=== PATIENT | female | born 1970 | race Caucasian/White ===

== ENCOUNTER 2017-08-01 22:58 | Emergency (ER) | payer MEDICARE, MEDICAID ==
[2017-08-01] MEDS: KETOROLAC 30 MG INJ IM (23:48)
== END 2017-08-02 00:41 | disposition home or self-care (01) ==
LOC: E/R 08-02 00:41
DX: I87.2 Venous insufficiency (chronic) (peripheral) (principal); E66.01 Morbid (severe) obesity due to excess calories; G89.4 Chronic pain syndrome; M79.2 Neuralgia and neuritis, unspecified; I10 Essential (primary) hypertension; E11.9 Type 2 diabetes mellitus without complications; Z79.84 Long term (current) use of oral hypoglycemic drugs
CPT/HCPCS: 71045; 93005; 96372; 99284-25

== ENCOUNTER 2018-02-21 10:26 | Emergency (ER) | payer MEDICARE, MEDICAID ==
[2018-02-21] MEDS: VANCOMYCIN 1 GM (PMX) 250 ML IVPB (11:17)
[2018-02-21 11:26] LABS: ADD MAN DIFF? NO
[2018-02-21 11:29] LABS: BASOPHILS % 0.3 % (0.0-2.0); EOSINOPHILS # 0.2 10^3/ul (0.0-0.5); EOSINOPHILS % 1.5 % (0.0-7.0); HEMATOCRIT 40.9 % (37.0-47.0); HEMOGLOBIN 12.3 g/dl (12.0-16.0); LYMPHOCYTES # 1.9 10^3/ul (0.8-2.9); LYMPHOCYTES % 17.6 % (15.0-51.0); MEAN CORPUSCULAR HEMOGLOBIN 24.2 pg (29.0-33.0); MEAN CORPUSCULAR HGB CONC 30.1 g/dl (32.0-37.0); MEAN CORPUSCULAR VOLUME 80.5 fl (82.0-101.0); MONOCYTE # 0.6 10^3/ul (0.3-0.9); MONOCYTES % 5.6 % (0.0-11.0); NEUTROPHIL # 7.9 10^3/ul (1.6-7.5); NEUTROPHILS % 74.4 % (39.0-77.0); PLATELET COUNT 277 10^3/UL (140-415); RED BLOOD COUNT 5.08 10^6/ul (4.20-5.40); RED CELL DISTRIBUTION WIDTH 17.9 % (11.5-14.5)
[2018-02-21 11:29] LABS: WHITE BLOOD COUNT 10.6 10^3/ul (4.8-10.8)
[2018-02-21] MEDS: KETOROLAC 30 MG INJ IV (11:48)
[2018-02-21 11:53] LABS: ALANINE AMINOTRANSFERASE 22 IU/L (13-69); ALBUMIN 3.9 g/dl (3.3-4.9); ALBUMIN/GLOBULIN RATIO 0.88; ALKALINE PHOSPHATASE 91 IU/L (42-121); ANION GAP 12 (8-16); ASPARTATE AMINO TRANSFERASE 18 IU/L (15-46); BILIRUBIN,INDIRECT 0.5 mg/dl (0-1.1); BILIRUBIN,TOTAL 0.5 mg/dl (0.2-1.3); BLOOD UREA NITROGEN 14 mg/dl (7-20); CARBON DIOXIDE 30 mmol/L (21-31); CHLORIDE 103 mmol/L (97-110); CREATININE 0.82 mg/dl (0.44-1.00); GLUCOSE 111 mg/dl (70-220); POTASSIUM 4.1 mmol/L (3.5-5.1); SODIUM 141 mmol/L (135-144); TOTAL PROTEIN 8.3 g/dl (6.1-8.1)
== END 2018-02-21 13:24 | disposition home or self-care (01) ==
LOC: FTE 10:26
DX: L03.311 Cellulitis of abdominal wall (principal); I10 Essential (primary) hypertension; E66.01 Morbid (severe) obesity due to excess calories; Z68.43 Body mass index [BMI] 50.0-59.9, adult; Z79.84 Long term (current) use of oral hypoglycemic drugs
CPT/HCPCS: 36415; 80053; 85025; 96365; 96366; 96375; 99284-25

== ENCOUNTER 2018-03-05 13:16 | Observation (INO) | payer MEDICARE, MEDICAID ==
[2018-03-05] MEDS: ASPIRIN 81 MG TAB PO (14:15)
[2018-03-05] MEDS: NITROGLYCERIN 2% 1 GM OINT PKT TD (14:15)
[2018-03-05] MEDS ORDERED: NITROGLYCERIN (SL) 0.4 MG TAB SL ×2 (14:30→16:00)
[2018-03-05 14:52] LABS: ADD MAN DIFF? NO
[2018-03-05 14:57] LABS: WHITE BLOOD COUNT 9.8 10^3/ul (4.8-10.8)
[2018-03-05 14:57] LABS: BASOPHILS % 0.3 % (0.0-2.0); EOSINOPHILS # 0.2 10^3/ul (0.0-0.5); EOSINOPHILS % 1.9 % (0.0-7.0); HEMATOCRIT 38.5 % (37.0-47.0); HEMOGLOBIN 11.7 g/dl (12.0-16.0); LYMPHOCYTES # 2.1 10^3/ul (0.8-2.9); LYMPHOCYTES % 21.1 % (15.0-51.0); MEAN CORPUSCULAR HEMOGLOBIN 24.5 pg (29.0-33.0); MEAN CORPUSCULAR HGB CONC 30.4 g/dl (32.0-37.0); MEAN CORPUSCULAR VOLUME 80.7 fl (82.0-101.0); MEAN PLATELET VOLUME 9.8 fl (7.4-10.4); MONOCYTE # 0.6 10^3/ul (0.3-0.9); MONOCYTES % 6.3 % (0.0-11.0); NEUTROPHIL # 6.8 10^3/ul (1.6-7.5); NEUTROPHILS % 69.9 % (39.0-77.0); PLATELET COUNT 322 10^3/UL (140-415); RED BLOOD COUNT 4.77 10^6/ul (4.20-5.40); RED CELL DISTRIBUTION WIDTH 17.1 % (11.5-14.5)
[2018-03-05 15:17] LABS: INR 0.96; PROTIME 12.9 Sec (11.9-14.9)
[2018-03-05 15:18] LABS: ANION GAP 10 (8-16); BLOOD UREA NITROGEN 13 mg/dl (7-20); CALCIUM 8.7 mg/dl (8.4-10.2); CARBON DIOXIDE 30 mmol/L (21-31); CHLORIDE 106 mmol/L (97-110); CREATININE 0.95 mg/dl (0.44-1.00); GLUCOSE 94 mg/dl (70-220); PARTIAL THROMBOPLASTIN TIME 29.6 Sec (23.0-35.0); POTASSIUM 3.9 mmol/L (3.5-5.1); SODIUM 142 mmol/L (135-144)
[2018-03-05 15:29] LABS: TROPONIN-I < 0.012 ng/ml (0.000-0.120)
[2018-03-05] MEDS ORDERED: DOCUSATE SODIUM 100 MG CAP PO (16:00)
[2018-03-05] MEDS ORDERED: MAGNESIUM HYDROXIDE 30ML CUP PO (16:00)
[2018-03-05] MEDS ORDERED: NA PHOSPHATE/BIPHOS 133 ML ENEMA PR (16:00)
[2018-03-05] MEDS ORDERED: LORAZEPAM 2 MG INJ IV (16:00)
[2018-03-05] MEDS ORDERED: morphine 2 MG INJ IV (16:00)
[2018-03-05] MEDS ORDERED: hydrALAzine 20 MG INJ IV (16:00)
[2018-03-05] MEDS ORDERED: ACETAMINOPHEN 325 MG TAB PO ×2 (16:00)
[2018-03-05] MEDS ORDERED: ALBUTEROL/IPRATROPIUM (NEB) 3 ML AMP HHN (16:00)
[2018-03-05] MEDS ORDERED: NACL 0.9% 3 ML SYG IV (16:00)
[2018-03-05] MEDS ORDERED: ONDANSETRON 4 MG INJ IV ×2 (16:00)
[2018-03-05 16:18] LABS: IRON 54 ug/dl (35-150)
[2018-03-05 16:20] LABS: CREATINE KINASE 52 IU/L (23-200)
[2018-03-05 16:29] LABS: % IRON SATURATION 14 % SAT (22-52); CK-MB 0.27 ng/ml (0.0-2.4); TOTAL IRON BINDING CAPACITY 383 ug/dl (241-421)
[2018-03-05 16:37] LABS: FREE T4 (FREE THYROXINE) 1.28 ng/dl (0.64-1.79)
[2018-03-05] MEDS: SOD CHLORIDE 0.45% 1,000 ML IV (16:48)
[2018-03-05] MEDS: INSULIN ASPART [NOVOLOG] 3 ML PEN SC ×2 (17:00→20:27)
[2018-03-05] MEDS: HEPARIN 5,000 UNIT/0.5 ML VIAL SC (20:29)
[2018-03-05] MEDS: HYDROCODONE/APAP (5/325) TAB PO (20:36)
[2018-03-05 21:52] LABS: CREATINE KINASE 49 IU/L (23-200)
[2018-03-05 22:05] LABS: CK INDEX 0.5; CK-MB 0.24 ng/ml (0.0-2.4); TROPONIN-I < 0.012 ng/ml (0.000-0.120)
[2018-03-06 00:16] LABS: CREATINE KINASE 41 IU/L (23-200)
[2018-03-06 00:29] LABS: CK INDEX 0.5; CK-MB < 0.22 ng/ml (0.0-2.4); TROPONIN-I < 0.012 ng/ml (0.000-0.120)
[2018-03-06] MEDS: INSULIN ASPART [NOVOLOG] 3 ML PEN SC ×4 (01:00→12:13)
[2018-03-06] MEDS: ACCU-CHEK XX (02:00)
[2018-03-06] MEDS: SOD CHLORIDE 0.45% 1,000 ML IV (02:16)
[2018-03-06 08:45] LABS: ADD MAN DIFF? NO
[2018-03-06 08:47] LABS: BASOPHILS % 0.4 % (0.0-2.0); EOSINOPHILS # 0.2 10^3/ul (0.0-0.5); EOSINOPHILS % 2.1 % (0.0-7.0); HEMATOCRIT 38.5 % (37.0-47.0); HEMOGLOBIN 11.5 g/dl (12.0-16.0); MEAN CORPUSCULAR HEMOGLOBIN 23.9 pg (29.0-33.0); MEAN CORPUSCULAR HGB CONC 29.9 g/dl (32.0-37.0); MEAN CORPUSCULAR VOLUME 79.9 fl (82.0-101.0); MEAN PLATELET VOLUME 9.6 fl (7.4-10.4); MONOCYTE # 0.3 10^3/ul (0.3-0.9); MONOCYTES % 4.6 % (0.0-11.0); NEUTROPHIL # 4.7 10^3/ul (1.6-7.5); NEUTROPHILS % 65.3 % (39.0-77.0); PLATELET COUNT 277 10^3/UL (140-415); RED BLOOD COUNT 4.82 10^6/ul (4.20-5.40); RED CELL DISTRIBUTION WIDTH 17.2 % (11.5-14.5)
[2018-03-06 08:47] LABS: WHITE BLOOD COUNT 7.3 10^3/ul (4.8-10.8)
[2018-03-06 09:03] LABS: ANION GAP 11 (8-16); BLOOD UREA NITROGEN 14 mg/dl (7-20); CALCIUM 8.8 mg/dl (8.4-10.2); CARBON DIOXIDE 28 mmol/L (21-31); CHLORIDE 104 mmol/L (97-110); CREATININE 0.77 mg/dl (0.44-1.00); GLUCOSE 101 mg/dl (70-220); MAGNESIUM 1.8 mg/dl (1.7-2.5); PHOSPHORUS 3.9 mg/dl (2.5-4.9); POTASSIUM 3.8 mmol/L (3.5-5.1); SODIUM 139 mmol/L (135-144)
[2018-03-06 09:04] LABS: CREATINE KINASE 40 IU/L (23-200)
[2018-03-06 09:05] LABS: CHOLESTEROL 137 mg/dl (100-200)
[2018-03-06 09:05] LABS: HDL CHOLESTEROL 45 mg/dl (34-88); LDL CHOLESTEROL,CALCULATED 65 mg/dl; TRIGLYCERIDES 133 mg/dl (0-149)
[2018-03-06 09:15] LABS: CK INDEX 0.6; CK-MB < 0.22 ng/ml (0.0-2.4); TROPONIN-I < 0.012 ng/ml (0.000-0.120)
[2018-03-06] MEDS: FERROUS SULFATE (EC) 325 MG TAB PO (09:17)
[2018-03-06] MEDS: ASPIRIN (EC) 325 MG TAB PO (09:17)
[2018-03-06] MEDS: HYDROCODONE/APAP (5/325) TAB PO (09:18)
[2018-03-06] MEDS: IBUPROFEN 800 MG TAB PO (09:18)
[2018-03-06] MEDS: BENAZEPRIL 40 MG TAB PO (09:19)
[2018-03-06] MEDS: HEPARIN 5,000 UNIT/0.5 ML VIAL SC (09:26)
== END 2018-03-06 15:08 | disposition home or self-care (01) ==
LOC: E/R 13:16 → TEL 15:33
DX: R07.9 Chest pain, unspecified (principal); E11.9 Type 2 diabetes mellitus without complications; I10 Essential (primary) hypertension; E66.01 Morbid (severe) obesity due to excess calories; Z68.45 Body mass index [BMI] 70 or greater, adult; Z79.82 Long term (current) use of aspirin; Z79.84 Long term (current) use of oral hypoglycemic drugs
CPT/HCPCS: 36415; 71045; 80048; 80061; 82550; 82553; 82962; 83036; 83540; 83735; 84100; 84439; 84443; 84484; 85025; 85610; 85730; 93005; 93306; 99285-25; G0378

== ENCOUNTER 2018-11-12 10:53 | Emergency (ER) | payer MEDICARE, MEDICAID ==
[2018-11-12] MEDS: LIDOCAINE 1% (MDV) 20 ML INJ SC (11:49)
[2018-11-12] MEDS: CEFTRIAXONE 1 GM INJ IM (11:49)
== END 2018-11-12 12:52 | disposition home or self-care (01) ==
LOC: FTE 12:52
DX: L02.01 Cutaneous abscess of face (principal); I10 Essential (primary) hypertension; F17.210 Nicotine dependence, cigarettes, uncomplicated; E11.9 Type 2 diabetes mellitus without complications; Z79.82 Long term (current) use of aspirin; Z79.84 Long term (current) use of oral hypoglycemic drugs
CPT/HCPCS: 96372; 99284-25

== ENCOUNTER 2019-02-02 17:31 | Inpatient (IN) | payer MEDICARE, MEDICAID ==
[2019-02-02] MEDS: HYDROCODONE/APAP (10/325) TAB PO (20:04)
[2019-02-02 20:15] LABS: ADD MAN DIFF? NO
[2019-02-02 20:19] LABS: BASOPHIL # 0.1 10^3/ul (0.0-0.1); BASOPHILS % 0.4 % (0.0-2.0); EOSINOPHILS # 0.2 10^3/ul (0.0-0.5); EOSINOPHILS % 1.3 % (0.0-7.0); HEMATOCRIT 37.3 % (37.0-47.0); LYMPHOCYTES # 2.4 10^3/ul (0.8-2.9); LYMPHOCYTES % 21.2 % (15.0-51.0); MEAN CORPUSCULAR HEMOGLOBIN 22.8 pg (29.0-33.0); MEAN CORPUSCULAR HGB CONC 29.5 g/dl (32.0-37.0); MEAN CORPUSCULAR VOLUME 77.2 fl (82.0-101.0); MEAN PLATELET VOLUME 9.9 fl (7.4-10.4); MONOCYTE # 0.5 10^3/ul (0.3-0.9); MONOCYTES % 4.7 % (0.0-11.0); NEUTROPHILS % 71.5 % (39.0-77.0); PLATELET COUNT 306 10^3/UL (140-415); RED BLOOD COUNT 4.83 10^6/ul (4.20-5.40); RED CELL DISTRIBUTION WIDTH 17.3 % (11.5-14.5)
[2019-02-02 20:19] LABS: WHITE BLOOD COUNT 11.2 10^3/ul (4.8-10.8)
[2019-02-02] MEDS: CEFTRIAXONE 1 GM/50 ML (PMX) 50 ML IVPB (20:41)
[2019-02-02] MEDS: KETOROLAC 30 MG INJ IV (20:41)
[2019-02-02 20:42] LABS: ALANINE AMINOTRANSFERASE 15 IU/L (13-69); ALBUMIN 3.6 g/dl (3.3-4.9); ALBUMIN/GLOBULIN RATIO 0.83; ALKALINE PHOSPHATASE 99 IU/L (42-121); ANION GAP 7 (5-13); ASPARTATE AMINO TRANSFERASE 20 IU/L (15-46); BILIRUBIN,INDIRECT 0.4 mg/dl (0-1.1); BILIRUBIN,TOTAL 0.4 mg/dl (0.2-1.3); BLOOD UREA NITROGEN 15 mg/dl (7-20); CALCIUM 9.1 mg/dl (8.4-10.2); CARBON DIOXIDE 27 mmol/L (21-31); CHLORIDE 103 mmol/L (97-110); CREATININE 0.82 mg/dl (0.44-1.00); Estimated GFR > 60 mL/min (>60); GLUCOSE 109 mg/dl (70-220); POTASSIUM 4.4 mmol/L (3.5-5.1); SODIUM 137 mmol/L (135-144); TOTAL PROTEIN 7.9 g/dl (6.1-8.1)
[2019-02-02 20:52] LABS: INR 0.92; PROTIME 12.5 Sec (11.9-14.9); TROPONIN-I < 0.012 ng/ml (0.000-0.120)
[2019-02-02 20:53] LABS: PARTIAL THROMBOPLASTIN TIME 29.4 Sec (23.0-35.0)
[2019-02-02] MEDS ORDERED: ONDANSETRON 4 MG INJ IV (21:00)
[2019-02-02] MEDS ORDERED: ACETAMINOPHEN 325 MG TAB PO ×2 (21:00→23:00)
[2019-02-02 21:20] LABS: ADD UMIC YES; UR ASCORBIC ACID NEGATIVE (NEGATIVE); UR BACTERIA FEW /HPF (NONE SEEN); UR BILIRUBIN (Dip) NEGATIVE (NEGATIVE); UR BLOOD (Dip) NEGATIVE (NEGATIVE); UR CLARITY CLOUDY (CLEAR); UR COLOR YELLOW (YELLOW); UR GLUCOSE (Dip) NEGATIVE (NEGATIVE); UR KETONES (Dip) NEGATIVE (NEGATIVE); UR LEUKOCYTE ESTERASE (Dip) NEGATIVE Leu/ul (NEGATIVE); UR MUCUS FEW /HPF (NONE SEEN); UR NITRITE (Dip) NEGATIVE (NEGATIVE); UR RBC 4 /HPF (0-5); UR SPECIFIC GRAVITY (Dip) 1.024 (1.003-1.030); UR SQUAMOUS EPITHELIAL CELL MANY /HPF (FEW); UR TOTAL PROTEIN (Dip) NEGATIVE (NEGATIVE); UR UROBILINOGEN (Dip) NEGATIVE (NEGATIVE); UR WBC 1 /HPF (0-5)
[2019-02-02] MEDS: VANCOMYCIN 1 GM (PMX) 250 ML IVPB (21:27)
[2019-02-02 22:07] LABS: LACTIC ACID 2.3 mmol/L (0.5-2.0)
[2019-02-02 22:26] LABS: PROCALCITONIN 0.02 ng/mL (0.00-0.10)
[2019-02-02] MEDS ORDERED: ALBUTEROL/IPRATROPIUM (NEB) 3 ML AMP HHN (23:00)
[2019-02-02] MEDS ORDERED: ALPRAZOLAM 0.25 MG TAB PO (23:00)
[2019-02-02] MEDS ORDERED: HYDROCODONE/APAP (5/325) TAB PO (23:00)
[2019-02-02] MEDS ORDERED: NACL 0.9% 3 ML SYG IV (23:00)
[2019-02-03 00:01] LABS: LACTIC ACID 0.9 mmol/L (0.5-2.0)
[2019-02-03] MEDS: SOD CHLORIDE 0.9% 1,000 ML IV ×3 (02:53→19:02)
[2019-02-03] MEDS: HYDROCODONE/APAP (5/325) TAB PO (02:56)
[2019-02-03] MEDS ORDERED: traMADol 50 MG TAB PO (03:30)
[2019-02-03 05:39] LABS: ADD MAN DIFF? NO
[2019-02-03 05:42] LABS: WHITE BLOOD COUNT 7.9 10^3/ul (4.8-10.8)
[2019-02-03 05:42] LABS: BASOPHILS % 0.3 % (0.0-2.0); EOSINOPHILS # 0.2 10^3/ul (0.0-0.5); EOSINOPHILS % 2.3 % (0.0-7.0); HEMATOCRIT 34.1 % (37.0-47.0); LYMPHOCYTES # 2.1 10^3/ul (0.8-2.9); LYMPHOCYTES % 27.2 % (15.0-51.0); MEAN CORPUSCULAR HEMOGLOBIN 22.9 pg (29.0-33.0); MEAN CORPUSCULAR HGB CONC 29.3 g/dl (32.0-37.0); MEAN CORPUSCULAR VOLUME 78.2 fl (82.0-101.0); MEAN PLATELET VOLUME 9.1 fl (7.4-10.4); MONOCYTE # 0.5 10^3/ul (0.3-0.9); MONOCYTES % 5.9 % (0.0-11.0); NEUTROPHILS % 63.7 % (39.0-77.0); PLATELET COUNT 287 10^3/UL (140-415); RED BLOOD COUNT 4.36 10^6/ul (4.20-5.40); RED CELL DISTRIBUTION WIDTH 16.9 % (11.5-14.5)
[2019-02-03 05:58] LABS: LACTIC ACID 0.8 mmol/L (0.5-2.0)
[2019-02-03 06:10] LABS: ALANINE AMINOTRANSFERASE 19 IU/L (13-69); ALBUMIN 3.1 g/dl (3.3-4.9); ALBUMIN/GLOBULIN RATIO 0.88; ALKALINE PHOSPHATASE 83 IU/L (42-121); ANION GAP 4 (5-13); ASPARTATE AMINO TRANSFERASE 18 IU/L (15-46); BILIRUBIN,INDIRECT 0.4 mg/dl (0-1.1); BILIRUBIN,TOTAL 0.4 mg/dl (0.2-1.3); BLOOD UREA NITROGEN 15 mg/dl (7-20); CALCIUM 8.8 mg/dl (8.4-10.2); CARBON DIOXIDE 29 mmol/L (21-31); CHLORIDE 104 mmol/L (97-110); CHOL/HDL RATIO 3.4 RATIO; CHOLESTEROL 154 mg/dl (100-200); CREATININE 0.82 mg/dl (0.44-1.00); Estimated GFR > 60 mL/min (>60); GLUCOSE 108 mg/dl (70-220); HDL CHOLESTEROL 45 mg/dl (34-88); LDL CHOLESTEROL,CALCULATED 89 mg/dl; MAGNESIUM 1.7 mg/dl (1.7-2.5); PHOSPHORUS 4.1 mg/dl (2.5-4.9); POTASSIUM 4.3 mmol/L (3.5-5.1); SODIUM 137 mmol/L (135-144); TOTAL PROTEIN 6.6 g/dl (6.1-8.1); TRIGLYCERIDES 101 mg/dl (0-149)
[2019-02-03] MEDS: CLINDAMYCIN 600 MG/D5W (PMX) 50 ML IVPB (06:23)
[2019-02-03 06:48] LABS: HEMOGLOBIN A1C 6.1 % (0-5.9)
[2019-02-03] MEDS: ACCU-CHEK XX ×4 (08:40→21:01)
[2019-02-03] MEDS: ASPIRIN 81 MG TAB PO (08:41)
[2019-02-03] MEDS: BENAZEPRIL 40 MG TAB PO (08:42)
[2019-02-03] MEDS: FERROUS SULFATE (EC) 325 MG TAB PO (08:42)
[2019-02-03] MEDS: AMLODIPINE 10 MG TAB PO (08:42)
[2019-02-03] MEDS: HYDROmorphONE 1 MG/ML SYG IV (08:43)
[2019-02-03] MEDS: metFORMIN 500 MG TAB PO (08:43)
[2019-02-03] MEDS: ENOXAPARIN 40 MG/0.4 ML SYG SC (08:46)
[2019-02-03] MEDS: ONDANSETRON 4 MG INJ IV (11:02)
[2019-02-03] MEDS: HYDROmorphONE 0.5 MG/0.5 ML SYG IV ×2 (15:49→22:48)
[2019-02-03] MEDS ORDERED: VANCOMYCIN IV PER PHARMACY XX (16:00)
[2019-02-03] MEDS ORDERED: GLUCOSE GEL 15 GRAM TUBE PO ×2 (16:30)
[2019-02-03] MEDS ORDERED: GLUCOSE GEL 15 GRAM TUBE BUCCAL (16:30)
[2019-02-03] MEDS ORDERED: GLUCAGON 1 MG INJ IM (16:30)
[2019-02-03] MEDS ORDERED: DEXTROSE 50% 50 ML SYRINGE IV ×2 (16:30)
[2019-02-03] MEDS: VANCOMYCIN HCL 2 GM in SOD CHLORIDE 0.9% 500 ML IVPB (17:39)
[2019-02-03] MEDS: INSULIN ASPART [NOVOLOG] 3 ML PEN SC ×2 (17:40→21:00)
[2019-02-04] MEDS: VANCOMYCIN 1 GM 250 ML IVPB ×3 (04:18→16:48)
[2019-02-04 05:54] LABS: ADD MAN DIFF? NO
[2019-02-04 05:58] LABS: WHITE BLOOD COUNT 8.1 10^3/ul (4.8-10.8)
[2019-02-04 05:58] LABS: BASOPHILS % 0.2 % (0.0-2.0); EOSINOPHILS # 0.2 10^3/ul (0.0-0.5); EOSINOPHILS % 2.2 % (0.0-7.0); HEMATOCRIT 34.1 % (37.0-47.0); HEMOGLOBIN 9.9 g/dl (12.0-16.0); LYMPHOCYTES # 1.2 10^3/ul (0.8-2.9); LYMPHOCYTES % 14.4 % (15.0-51.0); MEAN CORPUSCULAR HEMOGLOBIN 23.4 pg (29.0-33.0); MEAN CORPUSCULAR VOLUME 80.6 fl (82.0-101.0); MEAN PLATELET VOLUME 9.4 fl (7.4-10.4); MONOCYTE # 0.4 10^3/ul (0.3-0.9); MONOCYTES % 5.1 % (0.0-11.0); NEUTROPHIL # 6.3 10^3/ul (1.6-7.5); NEUTROPHILS % 77.6 % (39.0-77.0); PLATELET COUNT 275 10^3/UL (140-415); RED BLOOD COUNT 4.23 10^6/ul (4.20-5.40); RED CELL DISTRIBUTION WIDTH 17.2 % (11.5-14.5)
[2019-02-04 06:25] LABS: ANION GAP 1 (5-13); BLOOD UREA NITROGEN 16 mg/dl (7-20); CALCIUM 8.6 mg/dl (8.4-10.2); CARBON DIOXIDE 30 mmol/L (21-31); CHLORIDE 105 mmol/L (97-110); Estimated GFR > 60 mL/min (>60); GLUCOSE 107 mg/dl (70-220); IRON 21 ug/dl (35-150); POTASSIUM 4.7 mmol/L (3.5-5.1); SODIUM 136 mmol/L (135-144)
[2019-02-04 06:34] LABS: % IRON SATURATION 6 % SAT (22-52); TOTAL IRON BINDING CAPACITY 335 ug/dl (241-421)
[2019-02-04 06:56] LABS: FERRITIN 13.4 ng/ml (6.2-137.0)
[2019-02-04] MEDS: ACCU-CHEK XX ×4 (07:00→21:00)
[2019-02-04] MEDS: HYDROmorphONE 0.5 MG/0.5 ML SYG IV ×3 (07:46→22:22)
[2019-02-04] MEDS: metFORMIN 500 MG TAB PO (07:52)
[2019-02-04] MEDS: INSULIN ASPART [NOVOLOG] 3 ML PEN SC ×4 (07:52→21:00)
[2019-02-04] MEDS: ASPIRIN 81 MG TAB PO (09:21)
[2019-02-04] MEDS: FERROUS SULFATE (EC) 325 MG TAB PO (09:21)
[2019-02-04] MEDS: BENAZEPRIL 40 MG TAB PO (09:21)
[2019-02-04] MEDS: AMLODIPINE 10 MG TAB PO (09:22)
[2019-02-04] MEDS: ENOXAPARIN 40 MG/0.4 ML SYG SC (09:25)
[2019-02-05] MEDS: VANCOMYCIN 1 GM 250 ML IVPB ×3 (00:08→15:52)
[2019-02-05] MEDS: ACCU-CHEK XX ×4 (07:00→21:00)
[2019-02-05] MEDS: INSULIN ASPART [NOVOLOG] 3 ML PEN SC ×4 (08:00→21:00)
[2019-02-05] MEDS: metFORMIN 500 MG TAB PO ×2 (08:12→17:17)
[2019-02-05] MEDS: ENOXAPARIN 60 MG/0.6 ML SYG SC (08:23)
[2019-02-05] MEDS: HYDROmorphONE 0.5 MG/0.5 ML SYG IV ×2 (08:28→13:36)
[2019-02-05] MEDS: ASPIRIN 81 MG TAB PO (09:39)
[2019-02-05] MEDS: FERROUS SULFATE (EC) 325 MG TAB PO ×2 (09:39→22:12)
[2019-02-05] MEDS: BENAZEPRIL 40 MG TAB PO ×2 (09:40→22:13)
[2019-02-05] MEDS: AMLODIPINE 10 MG TAB PO (09:40)
[2019-02-05] MEDS: ASCORBIC ACID 500 MG TAB PO (22:12)
[2019-02-05 23:45] LABS: VANCOMYCIN,TROUGH 10.5 ug/ml (10.0-20.0)
[2019-02-06] MEDS: VANCOMYCIN 1 GM 250 ML IVPB ×4 (00:16→23:48)
[2019-02-06] MEDS: HYDROmorphONE 0.5 MG/0.5 ML SYG IV ×4 (06:15→23:55)
[2019-02-06 06:42] LABS: BLOOD UREA NITROGEN 12 mg/dl (7-20)
[2019-02-06] MEDS: ACCU-CHEK XX ×4 (07:00→20:36)
[2019-02-06] MEDS: INSULIN ASPART [NOVOLOG] 3 ML PEN SC ×4 (08:00→20:36)
[2019-02-06] MEDS: ASPIRIN 81 MG TAB PO (08:08)
[2019-02-06] MEDS: FERROUS SULFATE (EC) 325 MG TAB PO ×2 (08:08→20:35)
[2019-02-06] MEDS: ASCORBIC ACID 500 MG TAB PO ×2 (08:08→20:35)
[2019-02-06] MEDS: BENAZEPRIL 40 MG TAB PO ×2 (08:09→20:35)
[2019-02-06] MEDS: AMLODIPINE 2.5 MG TAB PO (08:09)
[2019-02-06] MEDS: ENOXAPARIN 60 MG/0.6 ML SYG SC (08:12)
[2019-02-06] MEDS: ONDANSETRON 4 MG INJ IV (13:13)
[2019-02-06] MEDS: SOD FERRIC GLUC COMPLX 125 MG in SOD CHLORIDE 0.9% 100 ML IVPB (14:38)
[2019-02-06] MEDS: metFORMIN 500 MG TAB PO (17:32)
[2019-02-07] MEDS: ACCU-CHEK XX ×2 (07:00→09:04)
[2019-02-07] MEDS: INSULIN ASPART [NOVOLOG] 3 ML PEN SC ×3 (08:00→12:00)
[2019-02-07] MEDS: VANCOMYCIN 1 GM 250 ML IVPB (08:40)
[2019-02-07] MEDS: BENAZEPRIL 40 MG TAB PO (08:41)
[2019-02-07] MEDS: ASCORBIC ACID 500 MG TAB PO (08:41)
[2019-02-07] MEDS: FERROUS SULFATE (EC) 325 MG TAB PO (08:41)
[2019-02-07] MEDS: AMLODIPINE 2.5 MG TAB PO (08:42)
[2019-02-07] MEDS: ASPIRIN 81 MG TAB PO (08:42)
[2019-02-07] MEDS: ENOXAPARIN 60 MG/0.6 ML SYG SC (08:47)
[2019-02-07] MEDS: HYDROmorphONE 0.5 MG/0.5 ML SYG IV (09:14)
== END 2019-02-07 16:32 | disposition home or self-care (01) | DRG 872 ==
LOC: 2NE 21:00 → FTE 17:31
DX: A41.9 Sepsis, unspecified organism (principal); L03.116 Cellulitis of left lower limb; Z68.45 Body mass index [BMI] 70 or greater, adult; L03.115 Cellulitis of right lower limb; E87.2 Acidosis; E11.8 Type 2 diabetes mellitus with unspecified complications; E88.81 Metabolic syndrome and other insulin resistance; E66.01 Morbid (severe) obesity due to excess calories; F41.9 Anxiety disorder, unspecified; F32.9 Major depressive disorder, single episode, unspecified; M79.7 Fibromyalgia; F17.200 Nicotine dependence, unspecified, uncomplicated; I10 Essential (primary) hypertension; L40.9 Psoriasis, unspecified; Z86.711 Personal history of pulmonary embolism; D50.0 Iron deficiency anemia secondary to blood loss (chronic)
CPT/HCPCS: 36415; 71045; 73590; 80048; 80053; 80061; 80202; 81001; 81025; 82565; 82728; 82962; 83036; 83540; 83605; 83735; 84100; 84145; 84484; 84520; 85025; 85610; 85730; 87040-91; 87086; 93005; 93971; 96374; 96375; 99285-25